=== PATIENT | male | born 1950 | race Caucasian/White ===

== ENCOUNTER 2022-04-08 12:07 | Inpatient (IN) | payer OTHER, BC ==
[2022-04-08 12:17] VITALS: BMI 32.5
[2022-04-08 13:11] LABS: BASO % 0.5 % (0-2.0); EOS % 2.6 % (0-4.5); HEMATOCRIT 34.9 % (35.4-49); HEMOGLOBIN 10.3 GM/dL (11.7-16.9); LYMPH % 12.8 % (8-40); MCH 22.5 pg (25.7-33.7); MCHC 29.4 g/dl (32.0-35.9); MEAN CELL VOLUME 76.6 fl (80-96); MEAN PLT VOLUME 7.7 fl (7.5-11.1); MONO % 11.3 % (3.8-10.2); NEUT % 72.8 % (42.8-82.8); PLATELET COUNT 241 10^3/uL (134-434); RBC 4.56 M/mm3 (4.00-5.60); RDW 18.9 % (11.9-15.9); WHITE BLOOD COUNT 6.8 K/mm3 (4.0-10.0)
[2022-04-08 13:20] LABS: INR 1.21 (0.83-1.09); PROTHROMBIN TIME (PATIENT) 13.9 SEC (9.7-13.0)
[2022-04-08 13:23] LABS: ACTIVATED PTT 30.8 SECONDS (25.2-36.5)
[2022-04-08 13:34] LABS: ALBUMIN 3.4 g/dl (3.4-5.0); BLOOD UREA NITROGEN 20.8 mg/dL (7-18); CALCIUM 8.7 mg/dL (8.5-10.1)
[2022-04-08 13:37] LABS: CREATININE 0.9 mg/dL (0.55-1.3)
[2022-04-08 13:39] LABS: BILIRUBIN,TOTAL 0.5 mg/dL (0.2-1); TOT PROT 6.7 g/dl (6.4-8.2)
[2022-04-08 13:42] LABS: N-TERMINAL BNP 645.6 pg/ml (5-125)
[2022-04-08] MEDS ORDERED: ALBUTEROL SO4 2.5/IPRATROPIUM 0.5 INH SOL 3 ML VIAL.NEB. NEB PRN (15:54)
[2022-04-08 17:05] LABS: ARTERIAL BLD GAS O2 SATURATION 91.2 % (95-98); ARTERIAL BLOOD GAS BASE EXCESS 6.6 mmol/L (-2-2); ARTERIAL BLOOD GAS pH 7.285 (7.350-7.450)
[2022-04-08 17:16] LABS: ALLENS TEST POSITIVE
[2022-04-08] MEDS ORDERED: PANTOPRAZOLE 40 MG TABLET PO ONE (19:48)
[2022-04-08] MEDS ORDERED: methylPREDNISolone NA SUCC 125 MG/2 ML VIAL ONE (19:49)
[2022-04-08] MEDS: PANTOPRAZOLE 40 MG TABLET PO SCH (19:55)
[2022-04-08] MEDS: methylPREDNISolone NA SUCC 125 MG/2 ML VIAL IVPUSH SCH (19:55)
[2022-04-08] MEDS: CARVEDILOL 12.5 MG TABLET (FP) PO SCH (23:13)
[2022-04-08] MEDS ORDERED: ATORVASTATIN CA 10 MG TABLET (FP) ONE (23:49)
[2022-04-08] MEDS: ATORVASTATIN CA 10 MG TABLET (FP) PO SCH (23:50)
[2022-04-09] MEDS ORDERED: methylPREDNISolone NA SUCC 125 MG/2 ML VIAL ONE ×2 (02:05→09:15)
[2022-04-09] MEDS: methylPREDNISolone NA SUCC 125 MG/2 ML VIAL IVPUSH SCH ×4 (02:13→18:30)
[2022-04-09 06:21] LABS: HEMATOCRIT 39.4 % (35.4-49); HEMOGLOBIN 11.5 GM/dL (11.7-16.9); MCH 22.4 pg (25.7-33.7); MCHC 29.3 g/dl (32.0-35.9); MEAN CELL VOLUME 76.7 fl (80-96); MEAN PLT VOLUME 7.9 fl (7.5-11.1); PLATELET COUNT 276 10^3/uL (134-434); RBC 5.13 M/mm3 (4.00-5.60); RDW 19.1 % (11.9-15.9); WHITE BLOOD COUNT 5.7 K/mm3 (4.0-10.0)
[2022-04-09 06:42] LABS: ALBUMIN 3.5 g/dl (3.4-5.0); BLOOD UREA NITROGEN 18.3 mg/dL (7-18)
[2022-04-09 06:45] LABS: CREATININE 0.9 mg/dL (0.55-1.3)
[2022-04-09 06:47] LABS: BILIRUBIN,TOTAL 0.9 mg/dL (0.2-1); TOT PROT 7.4 g/dl (6.4-8.2)
[2022-04-09 08:55] LABS: ANISOCYTOSIS 3+; MACROCYTOSIS 0
[2022-04-09] MEDS ORDERED: amLODIPine BESYLATE 5 MG TABLET (FP) ONE (09:14)
[2022-04-09] MEDS ORDERED: PANTOPRAZOLE 40 MG TABLET PO ONE (09:14)
[2022-04-09] MEDS ORDERED: ENOXAPARIN NA (PORCINE) 40 MG/0.4 ML DISP.SYRIN SQ ONE (09:15)
[2022-04-09] MEDS ORDERED: CARVEDILOL 12.5 MG TABLET (FP) ONE (09:15)
[2022-04-09] MEDS: amLODIPine BESYLATE 5 MG TABLET (FP) PO SCH (09:18)
[2022-04-09] MEDS: CARVEDILOL 12.5 MG TABLET (FP) PO SCH ×2 (09:18→22:34)
[2022-04-09] MEDS: ENOXAPARIN NA (PORCINE) 40 MG/0.4 ML DISP.SYRIN SQ SCH (09:18)
[2022-04-09] MEDS: PANTOPRAZOLE 40 MG TABLET PO SCH (09:18)
[2022-04-09] MEDS ORDERED: TIOTROPIUM BROMIDE 2.5 MCG (SPIRIVA) RESPIMAT INHALER IH SCH (10:00)
[2022-04-09] MEDS ORDERED: ALBUTEROL SO4 0.083% IH SOL 2.5 MG/3 ML VIAL.NEB. NEB PRN (13:13)
[2022-04-09] MEDS ORDERED: ALBUTEROL SO4 2.5/IPRATROPIUM 0.5 INH SOL 3 ML VIAL.NEB. NEB ONE (14:10)
[2022-04-09] MEDS: ALBUTEROL SO4 2.5/IPRATROPIUM 0.5 INH SOL 3 ML VIAL.NEB. NEB SCH ×2 (14:12→20:33)
[2022-04-09] MEDS ORDERED: methylPREDNISolone NA SUCC 40 MG/1 ML VIAL ONE (14:53)
[2022-04-09] MEDS: ATORVASTATIN CA 10 MG TABLET (FP) PO SCH (22:34)
[2022-04-10] MEDS: methylPREDNISolone NA SUCC 125 MG/2 ML VIAL IVPUSH SCH ×5 (00:41→21:48)
[2022-04-10] MEDS: ALBUTEROL SO4 2.5/IPRATROPIUM 0.5 INH SOL 3 ML VIAL.NEB. NEB SCH (08:20)
[2022-04-10] MEDS: CARVEDILOL 12.5 MG TABLET (FP) PO SCH ×2 (10:02→21:50)
[2022-04-10] MEDS: ENOXAPARIN NA (PORCINE) 40 MG/0.4 ML DISP.SYRIN SQ SCH (10:02)
[2022-04-10] MEDS: amLODIPine BESYLATE 5 MG TABLET (FP) PO SCH (10:02)
[2022-04-10] MEDS: PANTOPRAZOLE 40 MG TABLET PO SCH (10:02)
[2022-04-10] MEDS ORDERED: ALBUTEROL SO4 2.5/IPRATROPIUM 0.5 INH SOL 3 ML VIAL.NEB. NEB PRN (11:13)
[2022-04-10] MEDS: ALBUTEROL SO4 0.083% IH SOL 2.5 MG/3 ML VIAL.NEB. NEB SCH ×3 (11:35→20:51)
[2022-04-10] MEDS: FLUTICASONE/UMECLIDIN/VILANTER(200-62.5-25 TRELEGY ELLIPTA) INAHLER IH SCH (11:59)
[2022-04-10] MEDS: ATORVASTATIN CA 10 MG TABLET (FP) PO SCH (21:50)
[2022-04-11] MEDS: ALBUTEROL SO4 0.083% IH SOL 2.5 MG/3 ML VIAL.NEB. NEB SCH ×4 (07:55→20:05)
[2022-04-11] MEDS: CARVEDILOL 12.5 MG TABLET (FP) PO SCH ×2 (10:05→21:45)
[2022-04-11] MEDS: amLODIPine BESYLATE 5 MG TABLET (FP) PO SCH (10:05)
[2022-04-11] MEDS: ENOXAPARIN NA (PORCINE) 40 MG/0.4 ML DISP.SYRIN SQ SCH (10:05)
[2022-04-11] MEDS: PANTOPRAZOLE 40 MG TABLET PO SCH (10:05)
[2022-04-11] MEDS: methylPREDNISolone NA SUCC 125 MG/2 ML VIAL IVPUSH SCH ×4 (10:05→21:45)
[2022-04-11] MEDS: FLUTICASONE/UMECLIDIN/VILANTER(200-62.5-25 TRELEGY ELLIPTA) INAHLER IH SCH (10:06)
[2022-04-11 12:47] LABS: RETICULOCYTES 1.43 % (0.5-1.5)
[2022-04-11 15:56] LABS: HEMATOCRIT 37.6 % (35.4-49); MCH 22.4 pg (25.7-33.7); MCHC 29.1 g/dl (32.0-35.9); MEAN CELL VOLUME 76.9 fl (80-96); MEAN PLT VOLUME 8.6 fl (7.5-11.1); PLATELET COUNT 283 10^3/uL (134-434); RDW 18.9 % (11.9-15.9); WHITE BLOOD COUNT 17.2 K/mm3 (4.0-10.0)
[2022-04-11 16:38] LABS: CALCIUM 9.1 mg/dL (8.5-10.1)
[2022-04-11 16:40] LABS: BLOOD UREA NITROGEN 38.2 mg/dL (7-18)
[2022-04-11 16:43] LABS: CREATININE 1.1 mg/dL (0.55-1.3)
[2022-04-11 18:41] VITALS: RESP 18
[2022-04-11] MEDS: ATORVASTATIN CA 10 MG TABLET (FP) PO SCH (21:45)
[2022-04-12] MEDS: ALBUTEROL SO4 0.083% IH SOL 2.5 MG/3 ML VIAL.NEB. NEB SCH ×3 (07:15→15:26)
[2022-04-12 09:32] LABS: HEMATOCRIT 37.7 % (35.4-49); HEMOGLOBIN 10.9 GM/dL (11.7-16.9); MCH 22.3 pg (25.7-33.7); MCHC 28.9 g/dl (32.0-35.9); MEAN PLT VOLUME 8.8 fl (7.5-11.1); PLATELET COUNT 243 10^3/uL (134-434); RDW 18.3 % (11.9-15.9); WHITE BLOOD COUNT 13.5 K/mm3 (4.0-10.0)
[2022-04-12] MEDS: PANTOPRAZOLE 40 MG TABLET PO SCH (09:57)
[2022-04-12] MEDS: amLODIPine BESYLATE 5 MG TABLET (FP) PO SCH (09:57)
[2022-04-12] MEDS: ENOXAPARIN NA (PORCINE) 40 MG/0.4 ML DISP.SYRIN SQ SCH (09:57)
[2022-04-12] MEDS: CARVEDILOL 12.5 MG TABLET (FP) PO SCH (09:57)
[2022-04-12] MEDS: methylPREDNISolone NA SUCC 125 MG/2 ML VIAL IVPUSH SCH ×3 (09:57→17:47)
[2022-04-12] MEDS: FLUTICASONE/UMECLIDIN/VILANTER(200-62.5-25 TRELEGY ELLIPTA) INAHLER IH SCH (10:00)
[2022-04-12 10:07] LABS: ALBUMIN 3.3 g/dl (3.4-5.0); BLOOD UREA NITROGEN 31.2 mg/dL (7-18); CALCIUM 9.1 mg/dL (8.5-10.1)
[2022-04-12 10:10] LABS: CREATININE 0.9 mg/dL (0.55-1.3)
[2022-04-12 10:11] LABS: BILIRUBIN,TOTAL 0.9 mg/dL (0.2-1); TOT PROT 6.7 g/dl (6.4-8.2)
[2022-04-12 14:30] VITALS: BP 126/76; TEMP 97.5
[2022-04-12 15:29] VITALS: PULSE 64
== END 2022-04-12 18:48 | disposition home or self-care (01) | DRG 196 ==
LOC: JER 12:07 → JERBED 15:51 → J6S 04-09 18:05
PROVIDERS: ADMIT Internal Medicine; ATTEND Internal Medicine
DX: J84.9 Interstitial pulmonary disease, unspecified (principal); J96.21 Acute and chronic respiratory failure with hypoxia; J96.22 Acute and chronic respiratory failure with hypercapnia; J98.11 Atelectasis; I10 Essential (primary) hypertension; I27.20 Pulmonary hypertension, unspecified; E78.5 Hyperlipidemia, unspecified; R05.3 Chronic cough; E66.9 Obesity, unspecified; Z68.32 Body mass index [BMI] 32.0-32.9, adult
CPT/HCPCS: 0241U-QW; 36415; 36600; 71045-TC-FY; 71275-TC; 80048; 80053; 82728; 82803; 83540; 83550; 83735; 83880; 84443; 84466; 84484; 85025; 85027; 85045; 85610; 85730; 93005; 93010; 94640; 94660; 94761; 99285-25; Q9967

== ENCOUNTER 2022-08-22 14:22 | Inpatient (IN) | payer OTHER, BC ==
[2022-08-22] MEDS ORDERED: ALBUTEROL SO4 2.5/IPRATROPIUM 0.5 INH SOL 3 ML VIAL.NEB. NEB ONE (14:44)
[2022-08-22] MEDS: ALBUTEROL SO4 2.5/IPRATROPIUM 0.5 INH SOL 3 ML VIAL.NEB. NEB SCH ×3 (14:45→15:15)
[2022-08-22 14:50] VITALS: BMI 32.5
[2022-08-22] MEDS ORDERED: ACETAMINOPHEN 1000 MG/100 ML BAG IVPB ONE (14:51)
[2022-08-22] MEDS ORDERED: CEFTRIAXONE 1,000 MG in DEXTROSE 5%-WATER - 50 ML IVPB ONE (15:10)
[2022-08-22] MEDS ORDERED: AZITHROMYCIN IVPB 500 MG in DEXTROSE 5%-WATER - 250 ML IVPB ONE (15:10)
[2022-08-22] MEDS ORDERED: cefTRIAXone SODIUM 1 GM VIAL ONE (15:56)
[2022-08-22] MEDS ORDERED: ACETAMINOPHEN INJECTION 100 ML IVPB ONE (15:56)
[2022-08-22] MEDS ORDERED: AZITHROMYCIN 500 MG VIAL IVPB ONE (15:56)
[2022-08-22 16:27] LABS: HEMATOCRIT 48.9 % (35.4-49); HEMOGLOBIN 15.7 G/dL (11.7-16.9); MCH 31.7 pg (25.7-33.7); MCHC 32.1 g/dl (32.0-35.9); MEAN CELL VOLUME 98.7 fl (80-96); MEAN PLT VOLUME 10.1 fl (7.5-11.1); PLATELET COUNT 124.1 10^3/uL (134-434); RBC 4.95 10^6/uL (4.00-5.60); RDW 14.7 % (11.9-15.9); WHITE BLOOD COUNT 6.4 10^3/uL (4.0-10.8)
[2022-08-22 16:41] LABS: INR 1.16 (0.83-1.09); PROTHROMBIN TIME (PATIENT) 13.4 SEC (9.7-13.0)
[2022-08-22 16:44] LABS: ACTIVATED PTT 31.7 SECONDS (25.2-36.5)
[2022-08-22 17:19] LABS: BILIRUBIN,TOTAL 0.7 mg/dl (0.2-1); CALCIUM 9.1 mg/dl (8.5-10); CREATININE 0.9 mg/dl (0.55-1.3); POTASSIUM 3.8 mmol/L (3.5-5.1); TOT PROT 6.8 g/dl (6.4-8.2)
[2022-08-22 17:30] LABS: PLATELET ESTIMATE SLT DECREASE
[2022-08-22 17:57] LABS: VENOUS BASE EXCESS 8.8 mmol/L (-2-2); VENOUS O2 SATURATION 90.4 % (70-80); VENOUS PH 7.261 (7.310-7.410)
[2022-08-22 18:04] LABS: N-TERMINAL BNP 653.1 pg/ml (5-125)
[2022-08-22] MEDS ORDERED: DOCUSATE SODIUM 100 MG CAPSULE (FP) PO PRN (19:24)
[2022-08-22] MEDS ORDERED: ACETAMINOPHEN 1000 MG/100 ML BAG IVPB PRN (19:34)
[2022-08-22 20:12] LABS: INR 1.21 (0.83-1.09)
[2022-08-22 20:20] LABS: MAGNESIUM 1.6 mg/dL (1.8-2.4); PHOSPHOROUS 5.4 mg/dl (2.5-4.9)
[2022-08-22 21:20] LABS: VENOUS BASE EXCESS 11.5 mmol/L (-2-2); VENOUS O2 SATURATION 60.7 % (70-80)
[2022-08-22 21:23] LABS: VENOUS PH 7.146 (7.310-7.410)
[2022-08-22] MEDS ORDERED: FUROSEMIDE 40 MG/4 ML INJECTABLE VIAL IVPUSH ONE (22:03)
[2022-08-22] MEDS ORDERED: MAGNESIUM SULFATE IN WATER 2 GM/50 ML IVPB IVPB ONE (22:03)
[2022-08-22] MEDS ORDERED: FUROSEMIDE 40 MG/4 ML INJECTABLE VIAL ONE (22:18)
[2022-08-22] MEDS ORDERED: MAGNESIUM 1GM/D5W - 2 GM/200 ML IVPB IVPB ONE (22:19)
[2022-08-22] MEDS ORDERED: LIDOCAINE VISCOUS 2% ORAL/TOP 15 ML UNIT-DOSE CUP ONE (22:40)
[2022-08-23] MEDS ORDERED: ALBUTEROL SO4 2.5/IPRATROPIUM 0.5 INH SOL 3 ML VIAL.NEB. NEB PRN ×2 (02:32→20:30)
[2022-08-23 02:48] LABS: ARTERIAL BLD GAS O2 SATURATION 96.2 % (95-98); ARTERIAL BLOOD GAS BASE EXCESS 14.6 mmol/L (-2-2); ARTERIAL BLOOD GAS PO2 91.2 mmHg (80-100); ARTERIAL BLOOD GAS pH 7.354 (7.350-7.450)
[2022-08-23 02:50] LABS: VENT MODE S/T; VENT RATE 14
[2022-08-23] MEDS: methylPREDNISolone NA SUCC 125 MG/2 ML VIAL IVPUSH SCH ×3 (03:34→18:01)
[2022-08-23 07:10] LABS: BASO % 0.4 % (0-2.0); EOS % 0.3 % (0-4.5); HEMATOCRIT 42.2 % (35.4-49); LYMPH % 6.5 % (8-40); MCH 31.1 pg (25.7-33.7); MCHC 33.2 g/dl (32.0-35.9); MEAN CELL VOLUME 93.8 fl (80-96); MEAN PLT VOLUME 9.2 fl (7.5-11.1); MONO % 6.1 % (3.8-10.2); NEUT % 86.7 % (42.8-82.8); PLATELET COUNT 120 10^3/uL (134-434); RBC 4.49 M/mm3 (4.00-5.60); RDW 14.8 % (11.9-15.9); WHITE BLOOD COUNT 7.3 K/mm3 (4.0-10.0)
[2022-08-23 07:33] LABS: POTASSIUM 3.4 mmol/L (3.5-5.1)
[2022-08-23 07:38] LABS: CALCIUM 8.9 mg/dL (8.5-10.1)
[2022-08-23 07:41] LABS: BLOOD UREA NITROGEN 22.2 mg/dL (7-18)
[2022-08-23 07:42] LABS: CREATININE 0.8 mg/dL (0.55-1.3)
[2022-08-23 08:17] LABS: PHOSPHOROUS 3.4 mg/dL (2.5-4.9)
[2022-08-23] MEDS: ENOXAPARIN NA (PORCINE) 40 MG/0.4 ML DISP.SYRIN SQ SCH (09:49)
[2022-08-23] MEDS: FLUTICASONE/UMECLIDIN/VILANTER(200-62.5-25 TRELEGY ELLIPTA) INAHLER IH SCH (09:50)
[2022-08-23] MEDS: FERROUS SO4 325 MG TABLET (FP) PO SCH ×2 (09:50→18:01)
[2022-08-23] MEDS: ASPIRIN 325 MG ENTERIC COATED TABLET (FP) PO SCH (09:50)
[2022-08-23] MEDS: amLODIPine BESYLATE 5 MG TABLET (FP) PO SCH (09:50)
[2022-08-23] MEDS: CARVEDILOL 12.5 MG TABLET (FP) PO SCH ×2 (09:50→22:20)
[2022-08-23] MEDS: CHLORTHALIDONE 25 MG TABLET PO SCH (09:50)
[2022-08-23 11:50] LABS: ARTERIAL BLD GAS O2 SATURATION 97.2 % (95-98); ARTERIAL BLOOD GAS BASE EXCESS 13.7 mmol/L (-2-2); ARTERIAL BLOOD GAS PO2 106.1 mmHg (80-100)
[2022-08-23 11:53] LABS: ALLENS TEST POSITIVE
[2022-08-23 11:54] LABS: VENT RATE 7
[2022-08-23] MEDS: KCL 10 MEQ IVPB 10 MEQ/100 ML INFUS.BAG IVPB SCH ×5 (12:00→19:03)
[2022-08-23] MEDS: AZITHROMYCIN IVPB 500 MG/250 ML BAG IVPB SCH (14:53)
[2022-08-23] MEDS: CEFTRIAXONE 1 GM in DEXTROSE 5%-WATER - 50 ML IVPB SCH (14:53)
[2022-08-23] MEDS ORDERED: ACETAMINOPHEN 325 MG TABLET (FP) PO PRN (19:24)
[2022-08-23] MEDS: ATORVASTATIN CA 10 MG TABLET (FP) PO SCH (22:20)
[2022-08-24] MEDS: methylPREDNISolone NA SUCC 125 MG/2 ML VIAL IVPUSH SCH ×2 (01:07→09:23)
[2022-08-24 05:44] LABS: ARTERIAL BLD GAS O2 SATURATION 96.9 % (95-98); ARTERIAL BLOOD GAS BASE EXCESS 16.4 mmol/L (-2-2); ARTERIAL BLOOD GAS pH 7.411 (7.350-7.450)
[2022-08-24 05:56] LABS: ALLENS TEST POSITIVE
[2022-08-24 05:58] LABS: VENT MODE S/T; VENT RATE 16
[2022-08-24 06:20] LABS: HEMATOCRIT 43.2 % (35.4-49); HEMOGLOBIN 14.8 GM/dL (11.7-16.9); MCH 31.3 pg (25.7-33.7); MCHC 34.1 g/dl (32.0-35.9); MEAN CELL VOLUME 91.9 fl (80-96); MEAN PLT VOLUME 9.3 fl (7.5-11.1); PLATELET COUNT 114 10^3/uL (134-434); RBC 4.71 M/mm3 (4.00-5.60); RDW 14.2 % (11.9-15.9); WHITE BLOOD COUNT 6.3 K/mm3 (4.0-10.0)
[2022-08-24 06:43] LABS: POTASSIUM 3.5 mmol/L (3.5-5.1)
[2022-08-24 06:48] LABS: ALBUMIN 3.2 g/dl (3.4-5.0); MAGNESIUM 1.8 mg/dL (1.8-2.4)
[2022-08-24 06:49] LABS: BLOOD UREA NITROGEN 29.5 mg/dL (7-18)
[2022-08-24 06:51] LABS: CREATININE 0.8 mg/dL (0.55-1.3); PHOSPHOROUS 3.3 mg/dL (2.5-4.9)
[2022-08-24 06:53] LABS: BILIRUBIN,TOTAL 0.7 mg/dL (0.2-1); TOT PROT 6.2 g/dl (6.4-8.2)
[2022-08-24] MEDS ORDERED: MAGNESIUM SULF 50% (8.12 MEQ/2 ML-1 GM VIAL) IVPB ONE (08:00)
[2022-08-24] MEDS: amLODIPine BESYLATE 5 MG TABLET (FP) PO SCH (09:22)
[2022-08-24] MEDS: FERROUS SO4 325 MG TABLET (FP) PO SCH ×2 (09:22→17:33)
[2022-08-24] MEDS: CARVEDILOL 12.5 MG TABLET (FP) PO SCH ×2 (09:22→21:49)
[2022-08-24] MEDS: ENOXAPARIN NA (PORCINE) 40 MG/0.4 ML DISP.SYRIN SQ SCH (09:22)
[2022-08-24] MEDS: ASPIRIN 325 MG ENTERIC COATED TABLET (FP) PO SCH (09:23)
[2022-08-24] MEDS: CHLORTHALIDONE 25 MG TABLET PO SCH (09:23)
[2022-08-24] MEDS: FLUTICASONE/UMECLIDIN/VILANTER(200-62.5-25 TRELEGY ELLIPTA) INAHLER IH SCH (09:24)
[2022-08-24] MEDS: CEFTRIAXONE 1 GM in DEXTROSE 5%-WATER - 50 ML IVPB SCH (09:36)
[2022-08-24] MEDS: AZITHROMYCIN IVPB 500 MG/250 ML BAG IVPB SCH (10:52)
[2022-08-24] MEDS ORDERED: POTASSIUM CHLORIDE TABS 20 MEQ TABLET.ER (FP) PO ONE (11:50)
[2022-08-24] MEDS: KCL 10 MEQ IVPB 10 MEQ/100 ML INFUS.BAG IVPB SCH (11:56)
[2022-08-24] MEDS ORDERED: KCL 10 MEQ IVPB 10 MEQ/100 ML INFUS.BAG IVPB SCH (13:00)
[2022-08-24] MEDS ORDERED: methylPREDNISolone NA SUCC 40 MG/1 ML VIAL IVPUSH SCH (18:00)
[2022-08-24] MEDS: ATORVASTATIN CA 10 MG TABLET (FP) PO SCH (21:49)
[2022-08-25] MEDS: methylPREDNISolone NA SUCC 125 MG/2 ML VIAL IVPUSH SCH ×3 (01:08→17:00)
[2022-08-25 08:08] LABS: HEMATOCRIT 45.1 % (35.4-49); HEMOGLOBIN 15.3 GM/dL (11.7-16.9); MEAN CELL VOLUME 91.3 fl (80-96); MEAN PLT VOLUME 8.9 fl (7.5-11.1); PLATELET COUNT 134 10^3/uL (134-434); RBC 4.93 M/mm3 (4.00-5.60); RDW 14.4 % (11.9-15.9); WHITE BLOOD COUNT 10.9 K/mm3 (4.0-10.0)
[2022-08-25 08:25] LABS: POTASSIUM 3.4 mmol/L (3.5-5.1)
[2022-08-25 08:28] LABS: CALCIUM 9.1 mg/dL (8.5-10.1)
[2022-08-25 08:29] LABS: ALBUMIN 3.2 g/dl (3.4-5.0); BLOOD UREA NITROGEN 27.1 mg/dL (7-18)
[2022-08-25 08:31] LABS: MAGNESIUM 2.1 mg/dL (1.8-2.4)
[2022-08-25 08:32] LABS: CREATININE 0.8 mg/dL (0.55-1.3); PHOSPHOROUS 2.8 mg/dL (2.5-4.9)
[2022-08-25 08:33] LABS: BILIRUBIN,TOTAL 0.6 mg/dL (0.2-1); TOT PROT 6.4 g/dl (6.4-8.2)
[2022-08-25 09:25] VITALS: RESP 20
[2022-08-25] MEDS: CEFTRIAXONE 1 GM in DEXTROSE 5%-WATER - 50 ML IVPB SCH (09:25)
[2022-08-25] MEDS: FERROUS SO4 325 MG TABLET (FP) PO SCH ×2 (09:25→17:39)
[2022-08-25] MEDS: FUROSEMIDE 40 MG/4 ML INJECTABLE VIAL IVPUSH SCH (09:25)
[2022-08-25] MEDS: CARVEDILOL 12.5 MG TABLET (FP) PO SCH ×2 (09:25→21:27)
[2022-08-25] MEDS: FLUTICASONE/UMECLIDIN/VILANTER(200-62.5-25 TRELEGY ELLIPTA) INAHLER IH SCH (09:26)
[2022-08-25] MEDS: amLODIPine BESYLATE 5 MG TABLET (FP) PO SCH (09:26)
[2022-08-25] MEDS: ENOXAPARIN NA (PORCINE) 40 MG/0.4 ML DISP.SYRIN SQ SCH (09:26)
[2022-08-25] MEDS: ASPIRIN 325 MG ENTERIC COATED TABLET (FP) PO SCH (09:26)
[2022-08-25] MEDS: AZITHROMYCIN IVPB 500 MG/250 ML BAG IVPB SCH (11:42)
[2022-08-25] MEDS ORDERED: POTASSIUM CHLORIDE ORAL LIQUID 20 MEQ/15 ML PO ONE (16:41)
[2022-08-25] MEDS: ATORVASTATIN CA 10 MG TABLET (FP) PO SCH (21:27)
[2022-08-26] MEDS: methylPREDNISolone NA SUCC 125 MG/2 ML VIAL IVPUSH SCH (01:21)
[2022-08-26] MEDS: predniSONE 20 MG TABLET (UD) PO SCH ×2 (06:52→14:25)
[2022-08-26 08:34] LABS: HEMOGLOBIN 16.3 GM/dL (11.7-16.9); MEAN CELL VOLUME 91.1 fl (80-96); PLATELET COUNT 144 10^3/uL (134-434); RBC 5.27 M/mm3 (4.00-5.60); RDW 14.5 % (11.9-15.9); WHITE BLOOD COUNT 10.6 K/mm3 (4.0-10.0)
[2022-08-26 08:43] LABS: POTASSIUM 3.4 mmol/L (3.5-5.1)
[2022-08-26 09:08] LABS: ALBUMIN 3.6 g/dl (3.4-5.0); BLOOD UREA NITROGEN 32.6 mg/dL (7-18); CALCIUM 9.4 mg/dL (8.5-10.1); MAGNESIUM 2.2 mg/dL (1.8-2.4)
[2022-08-26 09:11] LABS: CREATININE 0.9 mg/dL (0.55-1.3)
[2022-08-26 09:13] LABS: BILIRUBIN,TOTAL 0.6 mg/dL (0.2-1)
[2022-08-26 09:14] LABS: TOT PROT 6.8 g/dl (6.4-8.2)
[2022-08-26] MEDS: FERROUS SO4 325 MG TABLET (FP) PO SCH (09:16)
[2022-08-26] MEDS: ENOXAPARIN NA (PORCINE) 40 MG/0.4 ML DISP.SYRIN SQ SCH (09:16)
[2022-08-26] MEDS: FUROSEMIDE 40 MG/4 ML INJECTABLE VIAL IVPUSH SCH (09:16)
[2022-08-26] MEDS: CARVEDILOL 12.5 MG TABLET (FP) PO SCH (09:16)
[2022-08-26] MEDS: CEFTRIAXONE 1 GM in DEXTROSE 5%-WATER - 50 ML IVPB SCH (09:17)
[2022-08-26] MEDS: AZITHROMYCIN IVPB 500 MG/250 ML BAG IVPB SCH (09:18)
[2022-08-26] MEDS: amLODIPine BESYLATE 5 MG TABLET (FP) PO SCH (09:18)
[2022-08-26] MEDS: ASPIRIN 325 MG ENTERIC COATED TABLET (FP) PO SCH (09:20)
[2022-08-26] MEDS: FLUTICASONE/UMECLIDIN/VILANTER(200-62.5-25 TRELEGY ELLIPTA) INAHLER IH SCH (09:20)
[2022-08-26 15:07] VITALS: BP 123/80; PULSE 63; TEMP 98.5
== END 2022-08-26 16:12 | disposition home or self-care (01) | DRG 189 ==
LOC: FER 14:22 → J4W 08-23 01:00
PROVIDERS: ADMIT Internal Medicine; ATTEND Internal Medicine
DX: J96.21 Acute and chronic respiratory failure with hypoxia (principal); J18.9 Pneumonia, unspecified organism; E87.29 Other acidosis; J44.0 Chronic obstructive pulmonary disease with (acute) lower respiratory infection; J44.1 Chronic obstructive pulmonary disease with (acute) exacerbation; J98.11 Atelectasis; I10 Essential (primary) hypertension; J96.22 Acute and chronic respiratory failure with hypercapnia; I48.91 Unspecified atrial fibrillation; I27.20 Pulmonary hypertension, unspecified; I71.20 Thoracic aortic aneurysm, without rupture, unspecified; E66.9 Obesity, unspecified; Z68.32 Body mass index [BMI] 32.0-32.9, adult; G47.33 Obstructive sleep apnea (adult) (pediatric); I45.10 Unspecified right bundle-branch block; I44.0 Atrioventricular block, first degree
CPT/HCPCS: 0241U-QW; 36415; 36600; 71045-TC-FY; 80048; 80053; 81003; 82803; 82962; 83605; 83735; 83880; 84100; 84484; 85025; 85027; 85610; 85730; 87040; 87086; 93005; 93306-TC; 94640; 94660; 97116-GP; 97161-GP; 99291

== ENCOUNTER 2023-06-21 07:00 | Day surgery (SDC) | payer OTHER, BC ==
[2023-06-19 14:11] VITALS: BMI 33.2
[2023-06-21] MEDS ORDERED: PROPOFOL 140 ML ONE (07:43)
[2023-06-21 09:24] VITALS: TEMP 97
[2023-06-21 09:27] VITALS: BP 98/56; PULSE 60; RESP 18
== END 2023-06-21 09:33 | disposition home or self-care (01) ==
LOC: FASU-ENDO 07:00
PROVIDERS: ATTEND Internal Medicine Gastroenterology
PROC: 0DBN8ZX Excision of Sigmoid Colon, Via Natural or Artificial Opening Endoscopic, Diagnostic (ICD-10-PCS; 2023-06-21)
PROC: 0DBP8ZX Excision of Rectum, Via Natural or Artificial Opening Endoscopic, Diagnostic (ICD-10-PCS; 2023-06-21)
PROC: 0DBK8ZX Excision of Ascending Colon, Via Natural or Artificial Opening Endoscopic, Diagnostic (ICD-10-PCS; principal; 2023-06-21 08:20)
DX: Z12.11 Encounter for screening for malignant neoplasm of colon (principal); D12.2 Benign neoplasm of ascending colon; D12.5 Benign neoplasm of sigmoid colon; D12.8 Benign neoplasm of rectum; K57.30 Diverticulosis of large intestine without perforation or abscess without bleeding
CPT/HCPCS: 88305-TC